=== PATIENT | male | born 1975 | race Caucasian/White ===

== ENCOUNTER 2017-01-03 16:01 | Emergency (ER) | payer MEDICARE ==
[2017-01-03 18:05] LABS: BLOOD UREA NITROGEN 15 mg/dL (7-18); CALCIUM 8.1 mg/dL (8.7-10.7); CARBON DIOXIDE 25 mmol/L (21-32); CREATININE 0.7 mg/dL (0.6-1.3); GLUCOSE,RANDOM 116 mg/dL (70-99); POTASSIUM 3.6 mmol/L (3.5-5.1); SODIUM 133 mmol/L (136-145); URIC ACID 2.7 mg/dL (3.5-7.2)
== END 2017-01-03 20:00 | disposition home or self-care (01) ==
LOC: ER 16:01
PROVIDERS: General Practice
DX: M25.551 Pain in right hip (principal); G89.29 Other chronic pain; M25.571 Pain in right ankle and joints of right foot; M19.90 Unspecified osteoarthritis, unspecified site; L03.115 Cellulitis of right lower limb; L02.413 Cutaneous abscess of right upper limb; F17.210 Nicotine dependence, cigarettes, uncomplicated; Z88.0 Allergy status to penicillin; Z79.899 Other long term (current) drug therapy
CPT/HCPCS: 36415; 73610; 73700; 80048; 84550; 99283; 99284-25